=== PATIENT | female | born 1975 | race Two or more races ===

== ENCOUNTER 2020-04-30 08:30 | Outpatient (CLI) | payer OTHER | END 2020-04-30 08:38 | disposition home or self-care (01) | LOC: RX STUDY 08:30 | PROVIDERS: ATTEND Internal Medicine Gastroenterology | DX: K21.9 Gastro-esophageal reflux disease without esophagitis (principal); R10.13 Epigastric pain; K44.9 Diaphragmatic hernia without obstruction or gangrene ==